=== PATIENT | male | born 1975 | race Caucasian/White ===

== ENCOUNTER 2022-10-02 02:36 | Emergency (ER) | payer BC, SELFPAY ==
[2022-10-02 02:47] VITALS: BP 138/88; PULSE 98; RESP 18; TEMP 36.4; O2SAT 96; BMI 30.1
--- NOTE | 2022-10-02 03:00 | ECG_ITS ---
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 Measurements Intervals [place] Rate: 94 P: 46 VA: 177 QRS: 51 QRSD: 145 T: 42 QT: 371 QTc: 465 Interpretive Statements SINUS RHYTHM INDETERMINATE AXIS RIGHT BUNDLE BRANCH BLOCK [120+ ms QRS DURATION, UPRIGHT V1, 40+ ms S IN I/aVL/V4/V5/V6] No previous ECG available for comparison Electronically Signed On 10-02-2022 10:50:36 CDT by Tamia Adkins M.D. [email or web address] ([email or web address] va medical [email or web address] [id number] f
[2022-10-02 03:07] LABS: Basophils # 0.1 10^3/uL (0.0-0.1); Basophils % 0.5 %; Eosinophils # 0.2 10^3/uL (0.0-0.8); Eosinophils % 1.7 %; Hematocrit 45.6 % (42.0-52.0); Hemoglobin 15.2 g/dL (11.7-16.6); Lymphocytes # 4.3 10^3/uL (0.8-4.8); Lymphocytes % 39.7 %; Mean Corpuscular HGB Conc 33.3 g/dL (30.0-36.0); Mean Corpuscular Hemoglobin 29.7 pg (28.0-34.0); Mean Corpuscular Volume 89.1 fl (80-94); Mean Platelet Volume 8.9 fL (7.4-10.4); Monocytes # 1.2 10^3/uL (0.2-0.9); Monocytes % 11.2 %; Neutrophils # 5.08 10^3/uL (1.8-7.7); Neutrophils % 46.6 %; Nucleated Red Blood Cells % 0 %; Platelet Count 534 10^3/cmm (130-400); Red Blood Count 5.12 10^6/uL (4.1-5.3); Red Cell Distribution Width 13.9 % (12.1-15.1); White Blood Count 10.9 10^3/uL (4.0-10.0)
[2022-10-02] MEDS: sodium chloride 0.9% 1,000 ML 999 ML IV (03:12)
[2022-10-02 03:25] LABS: Alanine Aminotransferase 60 U/L (0-41); Albumin Level 4.2 g/dL (3.5-5.2); Alkaline Phosphatase 109 U/L (40-130); Blood Urea Nitrogen 14 mg/dL (6-20); Calcium 9.3 mg/dL (8.5-10.5); Carbon Dioxide 26 mmol/L (22-29); Chloride 99 mmol/L (98-107); Globulin 2.7 g/dL (1.3-4.6); Glomerular Filtration Rate 80.1 mL/min (90-130); Glucose 139 mg/dL (65-115); Lipase 62 U/L (13-60); Osmolality Calculated 291 mOsm/kg (285-295); Sodium 139 mmol/L (136-145); Total Bilirubin 0.4 mg/dL (0.15-1.2); Total Protein 6.9 g/dL (6.6-8.7)
[2022-10-02 03:26] LABS: Troponin(5th) Baseline 9 ng/L (0-15)
[2022-10-02 03:30] LABS: Aspartate Amino Transferase 29 U/L (0-40)
--- NOTE | 2022-10-02 03:51 | W.ED.ARRPALP ---
HPI - Arrhythmia/Palpitations General: Chief Complaint: Arrhythmia/Palpitations Stated Complaint: racing heart , sweats Time Seen by Provider: 10/02/22 02:51 Source: patient History of Present Illness: 47-year-old male with a myriad of symptoms. He has a history of diabetes. He presents after being awoken by discomfort in his epigastrium radiating into his chest and possibly into his left upper extremity as well as palpitations. He was nauseated. He had a full feeling in his belly. Most of his symptoms have now passed. He still having some nausea and a full feeling in his belly. Symptoms did not improve after drinking a couple glasses of water at home, which they usually do. He presents the ER for investigation. Duration: constant Severity: similar to previous episodes Context: awoke with symptoms Arrhythmia history: other Associated symptoms: Reports anxiety, diaphoresis, muscle cramps, nausea, paresthesias and short of breath; Deny cough, syncope or vomiting Review of Systems Const: Reports: chills and diaphoresis; Denies: fever(s) ENMT: Denies: throat pain Card: Reports: chest pain and palpitations; Denies: syncope Resp: Denies: productive cough or non-productive cough GI: Reports: nausea; Denies: vomiting Musc: Reports: muscle cramps Psych: Reports: anxiety PFSH ED PFSH: Medical History Hodgkin disease Surgical History H/O splenectomy H/O thyroidectomy History of bone marrow biopsy S/P laparoscopic procedure Family History Father High cholesterol Mother Cancer Diabetes Social History Smoking and tobacco status: former smoker Quit status (tobacco): has quit using tobacco Second hand smoke exposure: No Smoking risk assessment/counseling performed?: No Alcohol intake: current Alcohol intake frequency: few times a month Alcohol type: beer Desire information about alcohol rehabilitation?: No Counseling given: No Desire information about substance/drug rehabilitation?: No Counseling given: No Adopted: No Caregiver/support person: No Lives independently: Yes Household members: spouse Housing: House Marital status: Number of children: 2 Highest education level completed: Master's Degree service: No Current occupational status: employed History of recent travel: No Physical Exam Const: COMMON NORMALS: no acute distress GENERAL APPEARANCE: cooperative; not ill appearing and not frail appearing HENMT: COMMON NORMALS: normocephalic, atraumatic and Normal external nose present HEAD & SCALP: normocephalic and atraumatic FACE & SINUS: normal facial exam and face symmetric NOSE: Normal external nose present Eye: COMMON NORMALS: Equal, round and reactive pupils present and EOMs intact bilaterally PUPIL: Yes Equal, round and reactive pupils present Neck/C-Spine: GENERAL: Yes trachea midline Chest: CHEST: Yes Symmetrical chest wall rise Resp: COMMON NORMALS: normal respiratory effort, No retractions, No use of accessory muscles and clear to auscultation bilaterally AUSCULTATION: clear to auscultation bilaterally Cardio: COMMON NORMALS: regular rate and regular rhythm RATE: regular rate RHYTHM: regular rhythm HEART SOUNDS: Murmur heart sound present systolic GI: COMMON NORMALS: Normal to inspection, nondistended, normoactive bowel sounds present Extremity: COMMON NORMALS: no pedal edema Neuro: CYNDI COMA SCALE: document GCS findings [place] coma scale eye opening: Spontaneous [place] coma scale verbal response: Orientated [place] coma scale motor response: Obey commands [place] coma scale total score: 15 SENSORY EXAM: Yes extremities (intact) Psych: COMMON NORMALS: speech normal SPEECH: Yes normal speech Skin: COMMON NORMALS: no rashes or lesions noted GENERAL SKIN EXAM: no rashes or lesions noted Course Vital Signs: Vital signs: Vital Signs Temperature 97.6 F 10/02/22 02:47 Pulse Rate 98 10/02/22 02:47 Respiratory Rate 18 10/02/22 02:47 Blood Pressure 138/88 10/02/22 02:47 Pulse Oximetry 96 10/02/22 02:47 Oxygen Delivery Me thod 10/02/22 02:47 MDM - Arrhythmia/Palpitations Medical Decision Making 47yo diabetic with abd and chest discomfort, palpiations, nausea. He has had these symptoms before. They are currently resolved after 1L of fluid and zofran. WBC is 11, no left shift. pltlt count mildly elevated. bmp is not remarkable. liver enzymes normal. EKG normal, baseline trop is normal. he'll be allowed discharge to as an outpt. Lab Data : 10/02/22 02:50 10/02/22 02:50 Laboratory Results WBC 10.9 10^3/uL (4.0-10.0) H 10/02/22 02:50 RBC 5.12 10^6/uL (4.1-5.3) 10/02/22 02:50 Hgb 15.2 g/dL (11.7-16.6) 10/02/22 02:50 Hct 45.6 % (42.0-52.0) 10/02/22 02:50 MCV 89.1 fl (80-94) 10/02/22 02:50 MCH 29.7 pg (28.0-34.0) 10/02/22 02:50 MCHC 33.3 g/dL (30.0-36.0) 10/02/22 02:50 RDW 13.9 % (12.1-15.1) 10/02/22 02:50 Plt Count 534 10^3/cmm (130-400) H 10/02/22 02:50 MPV 8.9 fL (7.4-10.4) 10/02/22 02:50 Neut % (Auto) 46.6 % 10/02/22 02:50 Lymph % (Auto) 39.7 % 10/02/22 02:50 [place] % (Auto) 11.2 % 10/02/22 02:50 Eos % (Auto) 1.7 % 10/02/22 02:50 Baso % (Auto) 0.5 % 10/02/22 02:50 Neut # (Auto) 5.08 10^3/uL (1.8-7.7) 10/02/22 02:50 Lymph # (Auto) 4.3 10^3/uL (0.8-4.8) 10/02/22 02:50 [place] # (Auto) 1.2 10^3/uL (0.2-0.9) H 10/02/22 02:50 Eos # (Auto) 0.2 10^3/uL (0.0-0.8) 10/02/22 02:50 Baso # (Auto) 0.1 10^3/uL (0.0-0.1) 10/02/22 02:50 Nucleated RBC % (auto) 0 % 10/02/22 02:50 Nucleated RBCs # 0.0 /100WBC 10/02/22 02:50 Sodium 139 mmol/L (136-145) 10/02/22 02:50 Potassium 4.0 mmol/L (3.5-5.1) 10/02/22 02:50 Chloride 99 mmol/L (98-107) 10/02/22 02:50 Carbon Dioxide 26 mmol/L (22-29) 10/02/22 02:50 Anion Gap 18.0 (5-19) 10/02/22 02:50 BUN 14 mg/dL (6-20) 10/02/22 02:50 Creatinine 1.0 mg/dL (0.7-1.2) 10/02/22 02:50 GFR Calculation 80.1 mL/min (90-130) L 10/02/22 02:50 Glucose 139 mg/dL (65-115) H 10/02/22 02:50 Calculated Osmolality 291 mOsm/kg (285-295) 10/02/22 02:50 Calcium 9.3 mg/dL (8.5-10.5) 10/02/22 02:50 Total Bilirubin 0.4 mg/dL (0.15-1.2) 10/02/22 02:50 AST 29 U/L (0-40) 10/02/22 02:50 ALT 60 U/L (0-41) H 10/02/22 02:50 Alkaline Phosphatase 109 U/L (40-130) 10/02/22 02:50 Troponin T Baseline 9 ng/L (0-15) 10/02/22 02:50 C-Reactive Protein 3.0 mg/L (0.0-4.9) 10/02/22 02:50 Total Protein 6.9 g/dL (6.6-8.7) 10/02/22 02:50 Albumin 4.2 g/dL (3.5-5.2) 10/02/22 02:50 Globulin 2.7 g/dL (1.3-4.6) 10/02/22 02:50 Lipase 62 U/L (13-60) H 10/02/22 02:50 TSH 2.90 uIU/mL (0.27-4.20) 10/02/22 02:50 Urine Color Yellow (Yellow) 10/02/22 04:05 Urine Appearance Clear (CLEAR) 10/02/22 04:05 Urine pH 6.5 (5-7) 10/02/22 04:05 Ur Specific [place] 1.005 (1.005-1.030) 10/02/22 04:05 Urine Protein Neg (Negative) 10/02/22 04:05 Urine Glucose (UA) Norm (Normal) 10/02/22 04:05 Urine Ketones Negative (Negative) 10/02/22 04:05 Urine Blood Neg (Negative) 10/02/22 04:05 Urine Nitrate Negative (Negative) 10/02/22 04:05 Urine Bilirubin Neg (Negative) 10/02/22 04:05 Urine Urobilinogen Norm mg/dL (Negative) 10/02/22 04:05 Ur Leukocyte Esterase Negative (Negative) 10/02/22 04:05 Serum Ketones Negative (Negative) 10/02/22 04:32 Discharge Plan Discharge Patient Disposition: Home Clinical Impression: Palpitations Condition: Stable Prescriptions: No Action levothyroxine 137 mcg tablet 137 mcg PO DAILY aspirin 81 mg tablet,delayed release (DR/EC) 81 mg PO DAILY Ozempic 0.25 mg or 0.5 mg(2 mg/1.5 mL) pen injector 0.5 mg SUBCUT Q7D 28 Days Qty: 3 0RF Ozempic 1 mg/dose (4 mg/3 mL) pen injector 1 mg SUBCUT Q7D 28 Days Qty: 3 0RF Ozempic 2 mg/dose (8 mg/3 mL) pen injector 2 mg SUBCUT Q7D 28 Days Qty: 3 0RF atorvastatin 40 mg tablet 40 mg PO DAILY Qty: 90 3RF metformin 1,000 mg tablet 1,000 mg PO DAILY Qty: 30 11RF Discharge Orders: Discharge ED (Routine); Ordered 10/02/22 Ordered By: Tim Lewis Referrals: Venkata Samson MD [Primary Care Provider] - 1-3 days Discharge Diet: Advance as tolerated and Diabetic Discharge Activity: Increase activity as tolerated Patient Instructions: Heart Palpitations (ED) Activity Restrictions/Additional Instructions: Return for repeated episodes of chest pain or palpitations, syncope or passing out, fever greater than 100, vomiting liquids or medications, any other concerning symptoms. Coding Level of Care Code ED Commercial Helicopter Pilot for Chg Fwd Exam Comprehensive
[2022-10-02 04:23] LABS: Add Urine Microscopic? NO; Charge for UA Resulting for Rev
[2022-10-02 04:45] LABS: Bilirubin Urine Neg (Negative); Blood Urine Neg (Negative); Glucose Urine UA Norm (Normal); Ketones Urine Negative (Negative); Leukocyte Esterase Urine Negative (Negative); Nitrate Urine Negative (Negative); Protein Urine Neg (Negative); Specific Gravity, Urine 1.005 (1.005-1.030); Urine Appearance Clear (CLEAR); Urine Color Yellow (Yellow); Urobilinogen Urine Norm (Negative); pH Urine 6.5 (5-7)
[2022-10-02] MEDS: ondansetron 2 mg/ML SDV 2 mL 4 MG IVP (04:46)
[2022-10-02 04:53] LABS: Ketone (Acetest) Serum Negative (Negative)
== END 2022-10-02 05:10 | disposition home or self-care (01) ==
PROVIDERS: Emergency Provider Emergency Medicine; PCP Family Medicine
DX: R00.2 Palpitations (principal); E11.9 Type 2 diabetes mellitus without complications; Z79.84 Long term (current) use of oral hypoglycemic drugs; Z79.85 Long-term (current) use of injectable non-insulin antidiabetic drugs
CPT/HCPCS: 36415; 80053; 81003; 82009; 83690; 84443; 84484; 85025; 86140; 93005; 96361; 96374; 99285; J2405; J7030